=== PATIENT | male | born 1975 | race Caucasian/White ===

== ENCOUNTER 2017-02-14 10:51 | Day surgery (SDC) | payer OTHER ==
--- NOTE | 2017-02-14 12:27 | Operative Note ---
Colonoscopy ([facility]) Procedure date: 02/14/17 Date of : 71 Procedure:Colonoscopy Colonoscopy with cold biopsies Indications: Mr. Bell is a 41-year-old gentleman who is here for diagnostic colonoscopy. He did have some bright red blood on the toilet tissue recently. He does state that he has a strong family history of cancer on the maternal side have his family but also on the paternal side. He has a first cousin with colon cancer. His sister had ovarian cancer advanced at the age of 44. The patient reports no abdominal pain or weight loss. He does have some irregular bowel function with both constipation and diarrhea. Performing Provider: Basim Britton MD Referrring Provider: Sunil Valenzuela M.D. Sedation: Fentanyl 200 mg IV/Versed 9 mg IV Procedure: Prior to the procedure, a history and physical exam was performed, and patient medications and allergies were reviewed. The risks and benefits of the procedure and the sedation options and risks were discussed with the patient. All questions were answered and informed consent was obtained. Patient identification and proposed procedure were verified by the physician and the nurse. The patient was placed in a left lateral decubitus position. Throughout the procedure, the patient's blood pressure, pulse, and oxygen saturations were monitored continuously. Findings: On digital rectal examination there was normal rectal tone. There were no external hemorrhoids. The prostate was 2+, smooth, soft, symmetric without nodules. The colonoscope was introduced through the anal canal to the rectum and advanced to the cecum. The ileocecal valve and appendiceal orifice were identified. The scope was advanced a short distance into the ileum which appeared grossly normal. The scope was then withdrawn into the colon. The cecum, ascending, transverse, descending, sigmoid and rectum were grossly normal. Within the distal rectum there was a diminutive polyp removed via cold biopsy that was 3 mm in size. There were no other mucosal abnormalities identified. Upon retroflexion within the rectum there were grade 1 internal hemorrhoids. Impressions: 1. Diminutive distal rectal polyp 2. Grade 1 internal hemorrhoids Recommendations: I will follow up the polyp pathology and recommend repeat colonoscopy again in 5 -10 years based upon the polyp histology. I would encourage fiber supplementation on a long-term daily maintenance basis. Complications: None EBL (ml): 0 at 1227
[2017-02-14 15:57] VITALS: BP 112/57
== END 2017-02-14 13:45 | disposition home or self-care (01) ==
LOC: SDC 10:51 → EDSEX 10:51 → SDC 12:00
PROVIDERS: Internal Medicine Gastroenterology
PROC: 0DBP8ZX Excision of Rectum, Via Natural or Artificial Opening Endoscopic, Diagnostic (ICD-10-PCS; principal; 2017-02-14 12:00)
DX: K62.1 Rectal polyp (principal); K64.0 First degree hemorrhoids; Z80.41 Family history of malignant neoplasm of ovary